=== PATIENT | male | born 1965 | race Caucasian/White ===

== ENCOUNTER 2022-10-04 12:14 | Emergency (ER) | payer MEDICARE, MEDICAID, SELFPAY ==
--- NOTE | ~2022-10-04 | CT_ITS ---
EXAMINATION: CT brain wo con DATE: 10/04/2022 15:05 INDICATION: Head injury TECHNIQUE: Computed tomography (CT) of the head was performed without intravenous contrast. The mA wa s adjusted according to patient size. Iterative reconstruction technique was employed. Exam dose: 60 5.33 mGy-cm total exam DLP. COMPARISON: None FINDINGS: There is a small amount of recent subarachnoid hemorrhage high over the left cerebral conve xity. No intracranial mass lesion or hemorrhage is noted otherwise. No midline shift or mass effect effect. No cerebrovascular accident is evident. Normal ventricular size. There is moderate cerebral cortical and cerebellar atrophy. No subdural or epidural hematoma is detected. Orbital contents are unremarkable. Included paranasal sinuses and mastoid air cells are normally deve loped and aerated. No fracture or bone destruction of the cranial vault. IMPRESSION: Small acute subarachnoid hemorrhage high over the left cerebral convexity No skull fracture or acute intracranial finding is noted otherwise Reviewed, dictated and finalized at [facility]. Reviewed, dictated and finalized at location [facility]. L MACHINE OPERATOR IMPRESSION: Small acute subarachnoid hemorrhage high over the left cerebral co nvexity No skull fracture or acute intracranial finding is noted otherwise
--- NOTE | ~2022-10-04 | XR_ITS ---
EXAMINATION: XR chest 2V 10/04/2022 15:15 INDICATION: Status post fall. Injury. PROCEDURE: 2 view chest COMPARISON: 10/20/2016 FINDINGS: The lungs are clear. The cardiomediastinal silhouette is within normal limits. There are no pleural effusions. There is no pneumothorax suspected. IMPRESSION: 1: NO ACUTE CARDIOPULMONARY DISEASE. Reviewed, dictated and finalized at location A. OR ACCOUNTING SPECIALIST
--- NOTE | ~2022-10-04 | CT_ITS ---
EXAMINATION: CT cervical spine wo con DATE: 10/04/2022 15:06 INDICATION: Neck pain TECHNIQUE: Computed tomography (CT) of the cervical spine was performed without intravenous contrast. The dose-length product was 461 mGy-cm. Automated exposure control and iterative reconstruction tech [employer] were employed. COMPARISON: None FINDINGS: Straightening of cervical lordosis, possibly due to muscle spasm or patient positioning. Th ere is degenerative anterolisthesis at C4-5. There is moderate degenerative disc disease at C5-6 and C6-7. Craniovertebral junction is normal. Odontoid process is normal. There is moderate facet and unc inate hypertrophy at C5-6 and C6-7. Odontoid process is normal. No paraspinal soft tissue abnormality . IMPRESSION: 1. No acute abnormality of the cervical spine. 2: Moderate cervical spondylosis. Reviewed, dictated and finalized at location A. ER OPERATOR
--- NOTE | ~2022-10-04 | XR_ITS ---
EXAMINATION: XR tibia fibula RT 2V DATE: 10/04/2022 15:16 INDICATION: Right lower leg injury and swelling. TECHNIQUE: 2 views of right tibia and fibula were obtained. COMPARISON: None. FINDINGS: Bone alignment is normal. No fracture. There is mild right knee osteoarthritis. IMPRESSION: 1. Mild right knee osteoarthritis. Reviewed, dictated and finalized at location A. PASSENGER VESSEL
[2022-10-04 13:15] VITALS: BP 155/100; PULSE 85; RESP 16; TEMP 36.8; O2SAT 100
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
[2022-10-04 15:35] VITALS: BP 148/105; BP 161/120; PULSE 82; RESP 18; O2SAT 98
--- NOTE | 2022-10-04 15:46 | PC.NURSE ---
[facility] declined [facility] [place] accepted to [facility] er eta 10min
--- NOTE | 2022-10-04 15:56 | PC.NURSE ---
OK per Kitty Melvin to remove C Collar, c collar removed
== END 2022-10-04 16:04 | disposition short-term general hospital (02) ==
PROVIDERS: Emergency Provider Physician Assistant
DX: S06.6X9A Traumatic subarachnoid hemorrhage with loss of consciousness of unspecified duration, initial encounter (principal); E78.5 Hyperlipidemia, unspecified; M47.812 Spondylosis without myelopathy or radiculopathy, cervical region; M17.11 Unilateral primary osteoarthritis, right knee; W17.89XA Other fall from one level to another, initial encounter
CPT/HCPCS: 70450; 71046; 72125; 73590; 99291; L0140